=== PATIENT | male | born 1960 | race Caucasian/White ===

== ENCOUNTER 2024-09-01 15:46 | Emergency (ER) | payer OTHER ==
[~2024-09-01] VITALS: Ht 175.3 cm; Wt 73.5 kg
[2024-09-01] MEDS ORDERED: ACETAMINOPHEN ES 500 MG TABLET ONE (16:01)
[2024-09-01] MEDS ORDERED: IBUPROFEN 600 MG TABLET ONE (16:01)
[2024-09-01] MEDS: IBUPROFEN 600 MG TABLET PO ONE (16:03)
[2024-09-01] MEDS: IV NS 0.9% 1,000 ML BAG IV ONE (16:03)
[2024-09-01] MEDS: ACETAMINOPHEN ES 500 MG TABLET PO ONE (16:03)
[2024-09-01 16:12] LABS: BASOPHILS % (AUTO) 0.1 % (0.0-2.0); HEMATOCRIT 33 % (39-51); HEMOGLOBIN 11.2 g/dL (13.5-17.5); LYMPHOCYTES # (AUTO) 0.6 K/uL (0.8-4.8); LYMPHOCYTES % (AUTO) 4.7 % (20.0-44.0); MEAN CORPUSCULAR HEMOGLOBIN 32 PG (26.0-33.0); MEAN CORPUSCULAR HGB CONC 34 g/dl (31.0-36.0); MEAN CORPUSCULAR VOLUME 95 fL (80-96); MONOCYTES # (AUTO) 0.7 K/uL (0.1-1.30); MONOCYTES % (AUTO) 4.9 % (2.0-12.0); NEUTROPHILS # (AUTO) 12.2 K/uL (1.8-8.9); NEUTROPHILS % (AUTO) 90.3 % (43.0-81.0); PLATELET COUNT (AUTO) 276 K/uL (150-450); RED BLOOD CELL COUNT(AUTO) 3.52 MIL/uL (4.5-6.0); RED CELL DISTRIBUTION WIDTH 17.3 % (11.5-15.0); WHITE BLOOD COUNT (AUTO) 13.5 K/uL (4.3-11.0)
[2024-09-01 16:19] LABS: CALCIUM, SERUM 9.1 mg/dL (8.5-10.1); CARBON DIOXIDE 28 mmol/L (21-32); CHLORIDE 93 mmol/L (98-107); CREATININE 1.2 mg/dL (0.6-1.3); GLUCOSE 111 mg/dL (74-106); POTASSIUM 3.8 mmol/L (3.5-5.1); SODIUM SERUM 129 mmol/L (136-145); UREA NITROGEN, BLOOD 18 mg/dL (7-18)
[2024-09-01 16:24] LABS: INR 1.11 (0.91-1.10); PARTIAL THROMBOPLASTIN TIME 29.4 SEC (24.3-34.3); PROTHROMBIN TIME 11.3 SECS (9.2-11.1)
[2024-09-01 16:39] LABS: ALBUMIN 3.8 g/dL (3.4-5.0)
[2024-09-01] MEDS ORDERED: ATOR10TA PO (17:04)
[2024-09-01] MEDS ORDERED: BICT1TAB PO (17:04)
[2024-09-01 17:06] LABS: ALANINE AMINOTRANSFERASE 25 U/L (12-78); ALKALINE PHOSPHATASE 95 U/L (46-116); ASPARTATE AMINOTRANSFERASE 21 U/L (15-37); BILIRUBIN,DIRECT 0.3 mg/dL (0.0-0.2); BILIRUBIN,TOTAL 1.5 mg/dL (0.2-1.0); TOTAL PROTEIN, SERUM 7.5 g/dL (6.4-8.2)
[2024-09-01 17:32] LABS: LACTIC ACID 1.2 mmol/L (0.4-2.0)
[2024-09-01] MEDS ORDERED: CEFTRIAXONE 1GM BAG (ER ONLY) 0 ML IV ONE (17:41)
[2024-09-01] MEDS: CEFTRIAXONE 1GM BAG (ER ONLY) 1 GM/50 ML PIGGYBACK IV ONE (17:43)
[2024-09-01] MEDS: AZITHROMYCIN 500 MG in IV D5W 250 ML IV ONE (17:43)
[2024-09-01] MEDS ORDERED: AMOX-430 PO (18:12)
[2024-09-01] MEDS ORDERED: IBUP-1953 PO (18:12)
[2024-09-01] MEDS ORDERED: BENZ-13 PO (18:12)
[2024-09-01 20:42] VITALS: BP 118/71; TEMP 98; O2SAT 99
== END 2024-09-01 20:43 | disposition home or self-care (01) ==
LOC: ER 15:52
DX: J18.9 Pneumonia, unspecified organism (principal); E78.5 Hyperlipidemia, unspecified; E87.1 Hypo-osmolality and hyponatremia; R74.01 Elevation of levels of liver transaminase levels; R00.0 Tachycardia, unspecified; Z79.899 Other long term (current) drug therapy; Z20.822 Contact with and (suspected) exposure to COVID-19
CPT/HCPCS: 99285; 96365; 71045; 96361; 87426; 96368; 93005; 84145; 85025; 80048; 87040; 83605; 80076; 36415; 84484; 85730; J7030; J7040; J0456; J0696; J7060